=== PATIENT | female | born 1975 | race Caucasian/White ===

== ENCOUNTER 2016-07-15 11:27 | Emergency (ER) | payer BC, OTHER ==
[2016-07-15 11:33] VITALS: BMI 23.5
--- NOTE | 2016-07-15 12:09 | PDOC ---
History of Present Illness - General History Source: Patient Exam Limitations: No Limitations <Blanche Gerardo - Last Filed: 07/15/16 14:34> - History of Present Illness Initial Comments: - General History Source: Patient Exam Limitations: No Limitations - History of Present Illness Initial Comments: 07/15/16 12:12 The patient is a 40-year-old woman, current everyday cigarette smoker (1/2 PPD) , accompanied by her , with a significant past medical history of anxiety and vertigo who presents to the emergency department via walk-in for further evaluation of numbness for the past week. She states that for the past week, she has been experiencing numbness/tingling and pain sensations on her hands and legs, mostly on the L side. She also notes that she wakes up in the middle of the night feeing dizzy, not allowing her to get much sleep. She also states that when she performs daily activities, she gets distracted easily and tends to forget what she was supposed to do. She has also experienced symptoms of her tongue and facial heaviness with some associated slurred speech intermittently. She initially, attributed these symptoms to her history of anxiety, but states that this is different than her typical symptoms. She also notes that nothing really makes her symptoms to happen, they occur randomly on their own. Her , who is currently at the bedside, reports that he believes that these symptoms have started ever since she slipped and fell in the bathroom and injured her head, approximately 1 year ago. She also fell, a few months ago and injured her head when she slipped and fell on the snow. No recent fall/head injury. She did not seek medical attention at the time. Also, of note, the patient stopped her lexapro "cold turkey" 2 weeks ago, and some of these sx started after she stopped her lexapro No recent fever, chills, generalized weakness. No chest pain, lightheadedness, palpitations, headaches, neck pain, neck stiffness, back pain, lower extremity swelling, calf pain. No cough, shortness of breath, throat discomfort, sore throat. No abdominal pain, nausea, vomiting, diarrhea No urinary complaints. She is not on any OCPs Allergies: No Known Drug Allergies. Past Surgical History: None reported Social History: Current everyday cigarette smoker (approximately 4-10/day; is currently trying to quit and also "vapes"). No ETOH and recreational drug use. Primary Care Physician: Dr. Elli Benz (Located in [place], [place]) Remainder of the review of systems is negative. <Blanche Gerardo - Last Filed: 07/15/16 12:17> <Liliya Ramírez - Last Filed: 07/15/16 12:33> <Liliya Ramírez - Last Filed: 07/15/16 17:32> - General Chief Complaint: CVA/TIA Stated Complaint: DIZZINESS, NUMBNESS TO LT SIDE, SLURRED, SOB Time Seen by Provider: 07/15/16 11:52 Past History <Blanche Gerardo - Last Filed: 07/15/16 14:34> - Past Medical History CVA: No GI Disorders: No Disorders: No HTN: No Liver Disease: No Seizures: No Thyroid Disease: No - Psycho/Social/Smoking Cessation Hx Anxiety: Yes Suicidal Ideation: No Smoking History: Current every day smoker Have you smoked in the past 12 months: Yes Number of Cigarettes Smoked Daily: 10 Information on smoking cessation initiated: No 'Breaking Loose' booklet given: 10/08/14 Hx Alcohol Use: No Drug/Substance Use Hx: No Substance Use Type: Alcohol <Liliya Ramírez - Last Filed: 07/15/16 17:32> - Past Medical History Allergies/Adverse Reactions: Allergies Allergy/AdvReac Type Severity Reaction Status Date / Time No Known Drug Allergies Allergy Verified 07/15/16 11:29 Home Medications: Ambulatory Orders Escitalopram Oxalate [Lexapro -] 20 mg PO DAILY 07/15/16 Review of Systems - Review of Systems Able to Perform ROS?: Yes Comments:: 07/15/16 12:12 12 point review of systems is as per history of present illness and otherwise negative. <Blanche Gerardo - Last Filed: 07/15/16 14:34> *Physical Exam - Vital Signs Last Vital Signs Temp Pulse Resp BP Pulse Ox 97.7 F 86 18 128/78 99 07/15/16 11:30 07/15/16 11:30 07/15/16 11:30 07/15/16 11:30 07/15/16 11:30 <Blanche Gerardo - Last Filed: 07/15/16 14:34> - Vital Signs Last Vital Signs Temp Pulse Resp BP Pulse Ox 97.7 F 86 18 128/78 99 07/15/16 11:30 07/15/16 11:30 07/15/16 11:30 07/15/16 11:30 07/15/16 11:30 - Physical Exam Comments: 07/15/16 12:07 Physical exam Last Vital Signs Temp Pulse Resp BP Pulse Ox 97.7 F 86 18 128/78 99 07/15/16 11:30 07/15/16 11:30 07/15/16 11:30 07/15/16 11:30 07/15/16 11:30 GENERAL: The patient is awake, alert, and fully oriented, and in no apparent distress. HEAD: Normal with no signs of trauma. EYES: Pupils equal, round and reactive to light, extraocular movements intact, sclera anicteric, conjunctiva are normal. ENT: Moist mucous membranes. NECK: Normal range of motion, supple LUNGS: Breath sounds equal, clear to auscultation bilaterally. No wheezes, and no crackles. HEART: Regular rate and rhythm, normal S1 and S2 without murmur, rub or gallop. ABDOMEN: Soft, nontender, normoactive bowel sounds. No guarding, no rebound. No masses appreciated. EXTREMITIES: Normal range of motion, no edema. No clubbing or cyanosis. No cords, erythema, or tenderness. NEURO: Mental status: The patient is oriented x3. Cranial nerves: Cranial nerves II through XII are intact Motor: The upper extremities are 5 over 5 in all muscle groups. The lower extremities are 5 over 5 in all muscle groups. Sensation: Sensation is intact to light touch throughout. Cerebellar: Frqleo-swcbkn-gwfx is normal in both upper extremities. Heel-knee- durand is normal in both lower extremities. Gait: Normal. Heel and toe walking are normal. Tandem gait is normal. PSYCH: Normal mood, normal affect. SKIN: Warm, Dry, normal turgor, no rashes or lesions noted. NIH stroke scale 0 <Liliya Ramírez - Last Filed: 07/15/16 17:32> NIH Stroke Scale - Initial Evaluation Level of consciousness: Alert Ask patient the month and their age: Answers both correctly Ask patient to open & close eyes; make fist and let go: Obeys both correctly Best gaze (horizontal eye movement): Normal Visual field testing: No visual field loss Facial paresis (Show teeth/raise eyebrows/close eyes tight): Normal symmetrical movement Motor Function: Left Arm: Normal Motor Function: Right Arm: Normal (extends arm 90 (or 45) degrees for 10 seconds without drift Motor Function: Left Leg: Normal (extends leg 30 degrees for 5 seconds without drift) Motor Function: Right Leg: Normal (extends leg 30 degrees for 5 seconds without drift) Limb Ataxia: No ataxia Sensory(Use pinprick test arms,legs,trunk,face/side to side): Normal Best language (Describe picture, name items, read sentences): No Aphasia Dysarthria (read several words): Normal articulation Extinction and Inattention: No abnormality - Total Score NIH Stroke Scale Score: 0 <Liliya Ramírez - Last Filed: 07/15/16 17:32> Critical Care Time/MDM Note - Medical Decision Making Note: 07/15/16 14:25 EXAM: CT/HEAD CT WITHOUT CONTRAST IMPRESSION: Contiguous transaxial images are obtained from the skull base to the vertex without the intravenous use of iodinated contrast material. Sagittal and coronal reconstructions were performed. There are no areas of diminished or increased attenuation seen. There is no ventricular compression , dilatation or extracerebral collection seen. There is no evidence of a shift of the midline structures. 07/15/16 14:[address] Chiang <Blanche Gerardo - Last Filed: 07/15/16 14:34> - Medical Decision Making Note: 07/15/16 12:08 40-year-old female with 1 week of intermittent symptoms as noted above, without any associated recent intercurrent illnesses, recent (past few weeks) intercurrent head injury, or headache She is not on oral contraceptives NIH stroke scale at this time 0 07/15/16 14:35 Laboratory Results - last 24 hr 07/15/16 07/15/16 07/15/16 11:10 11:10 12:07 WBC 7.8 RBC 4.73 Hgb 12.9 Hct 39.5 MCV 83.5 MCHC 32.7 RDW 12.9 Plt Count 238 MPV 7.6 Sodium 141 Potassium 4.2 Chloride 105 Carbon Dioxide 27 Anion Gap 9 BUN 17 D Creatinine 0.8 Creat Clearance w eGFR > 60 Random Glucose 95 Calcium 9.2 Total Bilirubin 0.3 D AST 32 D ALT 81 H D Alkaline Phosphatase 66 Creatine Kinase 99 Troponin I < 0.02 Total Protein 6.8 Albumin 4.0 Urine HCG, Qual Negative 07/15/16 15:24 Case discussed with neurology-Dr. Chiang - coming to see patient in consultation 07/15/16 16:21 Patient seen and evaluated by neurology-please see consult Neurology would like an MRI of the brain with and without, and an MRI of the C- spine She spoke to radiology, and this will be done this evening, patient will stay until MRI Neurology Recommends MRI brain with and without contrast to rule out demyelinating disease MRI C spine given history of neck pain MRI will be done at 7 PM this evening If MRI brain/c spine normal and patients symptoms resolve, ok from neuro perspective for patient to have close neuro follow up as outpatient Discussed with patient need for psych follow up If radiographic findings abnormal or symptoms persist/worsen would recommend admission for further workup 07/15/16 17:25 Patient refuses to stay for MRI-discussed with Dr. 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 The patient has had an opportunity to ask questions about his/her medical condition. The patient has been informed that he/she may return for care at any time, and has been referred to his/her own physician <Liliya Ramírez - Last Filed: 07/15/16 17:32> Discharge Disposition <Blanche Gerardo - Last Filed: 07/15/16 14:34> <Liliya Ramírez - Last Filed: 07/15/16 17:32> - Diagnosis Numbness, Weakness - Discharge Dispostion Disposition: AGAINST MEDICAL ADVICE - Referrals Referrals: Joe Chiang MD [Staff Physician] - (call for appt jaswant) - Patient Instructions Additional Instructions: You are leaving AGAINST MEDICAL ADVICE Neurology feels it is very important for you to have the MRI this evening, and we do have it scheduled for you at 7 PM You may continue to worsen, or have other neurologic symptoms I have given you a prescription for the MRI- MRI of the brain with and without contrast and MRI of the C-spine you will need to have this MRI done as soon as possible, and follow-up with neurology-Dr. Chiang Please call tomorrow for an appointment Return immediately if you worsen in any way
[2016-07-15 12:55] LABS: MCH 27.3 pg (25.7-33.7); MCHC 32.7 g/dl (32.0-36.0); MEAN CELL VOLUME 83.5 fl (80-96); MEAN PLT VOLUME 7.6 fl (7.5-11.1); PLATELET COUNT 238 K/MM3 (134-434); RDW 12.9 % (11.6-15.6); WHITE BLOOD COUNT 7.8 K/mm3 (4.0-10.0)
[2016-07-15 13:23] LABS: ANION GAP 9 (8-16); CALCIUM 9.2 mg/dL (8.5-10.1); CO2 27 mmol/L (21-32); CREATININE 0.8 mg/dL (0.55-1.02); GLUCOSE,RANDOM 95 mg/dL (74-106); SGOT/AST 32 U/L (15-37); SGPT/ALT 81 U/L (12-78)
[2016-07-15 13:26] LABS: ALK PHOS 66 U/L (45-117); BILIRUBIN,TOTAL 0.3 mg/dL (0.2-1.0); TOT PROT 6.8 g/dl (6.4-8.2); TROPONIN I < 0.02 ng/ml (0.00-0.05)
--- NOTE | 2016-07-15 14:48 | EKG ---
Test Reason : Blood Pressure : / mmHG Vent. Rate : 071 BPM Atrial Rate : 071 BPM P-R Int : 186 ms QRS Dur : 084 ms QT Int : 386 ms P-R-T Axes : 051 070 060 degrees QTc Int : 419 ms NORMAL SINUS RHYTHM NORMAL ECG WHEN COMPARED WITH ECG OF 08-OCT-2014 13:53, NO SIGNIFICANT CHANGE WAS FOUND Confirmed by TERESA GARCIA MD ([id number]) on 07/15/2016 2:48:06 PM Referred By: Confirmed By:TERESA GARCIA MD
--- NOTE | 2016-07-15 16:10 | CONSULT ---
Consult Consult Specialty:: Neurology Reason for Consultation:: Paresthesias - History of Present Illness History of Present Illness: 40 year old woman, history of depression, anxiety, and smoking, presents to ED with multiple neurological complaints. She is accompanied by her . The patient states that for the past week to two weeks she has noted intermittent numbness/ tingling/ pain in her hands, most noteable at night. She has also experienced intermittent lightheadedness, distractibility, slurred speech, and tongue heaviness. Currently, she denies any sensory changes or motor weakness, but reports some tongue heaviness. Of note, the patient ran out of lexapro two weeks ago, and has noted these symptoms since then. She has also noted occasional neck pain and reports her neck feels "uncomfortable" which has been ongoing. Denies history of demyelinating or neurological disease in the past. CT head completed in ED shows no acute findings Examination non focal - History Source History Provided By: Patient - Past Medical History BOOKS BINDER: Yes: Vertigo ...LMP: 09/25/13 Psych: Yes: Anxiety, Depression - Alcohol/Substance Use Hx Alcohol Use: No - Smoking History Smoking history: Current every day smoker Have you smoked in the past 12 months: Yes Aproximately how many cigarettes per day: 10 Home Medications - Allergies Allergies/Adverse Reactions: Allergies Allergy/AdvReac Type Severity Reaction Status Date / Time No Known Drug Allergies Allergy Verified 07/15/16 11:29 - Home Medications Home Medications: Ambulatory Orders Escitalopram Oxalate [Lexapro -] 20 mg PO DAILY 07/15/16 Review of Systems - Review of Systems Constitutional: reports: No Symptoms Eyes: reports: No Symptoms HENT: reports: No Symptoms Neurological: reports: Incoordination, Numbness, Parasthesia Psychiatric: reports: Anxiety, Depression Physical Exam Vital Signs: Vital Signs Temperature 97.7 F 07/15/16 11:30 Pulse Rate 86 07/15/16 11:30 Respiratory Rate 18 07/15/16 11:30 Blood Pressure 128/78 07/15/16 11:30 O2 Sat by Pulse Oximetry (%) 99 07/15/16 11:30 Constitutional: Yes: Well Nourished, No Distress Eyes: Yes: Conjunctiva Clear, EOM Intact HENT: Yes: Atraumatic, Normocephalic Neurological: Yes: Alert, Oriented, Cran Nerves II-XII Intact ...Motor Strength: WNL Labs: CBC, BMP 07/15/16 11:10 07/15/16 11:10 Assessment/Plan 40 year old woman, history of depression, anxiety, and smoking, presents to ED with multiple neurological complaints. She is accompanied by her . The patient states that for the past week to two weeks she has noted intermittent numbness/ tingling/ pain in her hands, most noteable at night. She has also experienced intermittent lightheadedness, distractibility, slurred speech, and tongue heaviness. Currently, she denies any sensory changes or motor weakness, but reports some tongue heaviness. Of note, the patient ran out of lexapro two weeks ago, and has noted these symptoms since then. Symptoms of anxiety have also worsened since discontinuing lexapro. She has also noted occasional neck pain and reports her neck feels "uncomfortable" which has been ongoing. Denies history of demyelinating or neurological disease in the past. CT head completed in ED shows no acute findings Examination non focal. Recommend MRI brain with and without contrast to rule out demyelinating disease MRI C spine given history of neck pain If MRI brain/c spine normal and patients symptoms resolve, ok from neuro perspective for patient to have close neuro follow up as outpatient Discussed with patient need for psych follow up If radiographic findings abnormal or symptoms persist/worsen would recommend admission for further workup
[2016-07-15 16:36] VITALS: BP 109/72; PULSE 70; TEMP 98.3
== END 2016-07-15 17:51 | disposition left against medical advice (07) ==
LOC: JER 11:27
DX: R53.1 Weakness (principal); R20.0 Anesthesia of skin; F41.9 Anxiety disorder, unspecified; F17.210 Nicotine dependence, cigarettes, uncomplicated
CPT/HCPCS: 36415; 70450-TC; 70553-TC; 72141-TC; 80053; 82550; 84484; 84703; 85027; 93005; 93010; 99284-25; A9576

== ENCOUNTER 2020-06-23 14:21 | Emergency (ER) | payer BC, OTHER ==
[2020-06-23 14:32] VITALS: BP 146/90; PULSE 68; TEMP 98.2; BMI 21.1
[2020-06-23 16:04] LABS: BASO % 0.5 % (0-2.0); EOS % 0.4 % (0-4.5); HEMATOCRIT 38.6 % (32.4-45.2); HEMOGLOBIN 12.7 GM/dL (10.7-15.3); LYMPH % 22.8 % (8-40); MCH 27.9 pg (25.7-33.7); MCHC 32.8 g/dl (32.0-36.0); MEAN CELL VOLUME 84.9 fl (80-96); MEAN PLT VOLUME 7.7 fl (7.5-11.1); MONO % 3.9 % (3.8-10.2); NEUT % 72.4 % (42.8-82.8); PLATELET COUNT 287 K/MM3 (134-434); RBC 4.54 M/mm3 (3.60-5.2); RDW 13.5 % (11.6-15.6); WHITE BLOOD COUNT 8.7 K/mm3 (4.0-10.0)
[2020-06-23 16:09] LABS: INR 0.87 (0.83-1.09); PROTHROMBIN TIME (PATIENT) 10.6 SEC (9.7-13.0)
[2020-06-23 16:12] LABS: ACTIVATED PTT 29.5 SECONDS (25.2-36.5)
[2020-06-23 16:26] LABS: CHLORIDE 103 mmol/L (98-107); POTASSIUM 3.7 mmol/L (3.5-5.1); SODIUM 136 mmol/L (136-145)
[2020-06-23 16:28] LABS: CALCIUM 9.8 mg/dL (8.5-10.1)
[2020-06-23 16:29] LABS: ALBUMIN 4.4 g/dl (3.4-5.0); ANION GAP 7 MMOL/L (8-16); BLOOD UREA NITROGEN 12.2 mg/dL (7-18); CO2 27 mmol/L (21-32); GLUCOSE,RANDOM 94 mg/dL (74-106); MAGNESIUM 2.2 mg/dL (1.8-2.4)
[2020-06-23 16:32] LABS: CREATININE 0.7 mg/dL (0.55-1.3); SGOT/AST 15 U/L (15-37); SGPT/ALT 26 U/L (13-61)
[2020-06-23 16:34] LABS: BILIRUBIN,TOTAL 0.4 mg/dL (0.2-1); TOT PROT 7.6 g/dl (6.4-8.2)
[2020-06-23 16:35] LABS: ALK PHOS 94 U/L (45-117)
== END 2020-06-23 17:00 | disposition home or self-care (01) ==
LOC: JER 14:21
DX: F41.9 Anxiety disorder, unspecified (principal)
CPT/HCPCS: 36415; 80053; 82550; 82553; 83735; 84484; 85025; 85379; 85610; 85730; 93005; 93010; 99284-25

== ENCOUNTER 2021-03-12 15:16 | Emergency (ER) | payer BC, OTHER ==
[2021-03-12 15:36] VITALS: BP 134/81; PULSE 81; TEMP 97.8; BMI 22.7
== END 2021-03-12 17:14 | disposition left against medical advice (07) ==
LOC: JER 15:16
DX: R00.2 Palpitations (principal)
CPT/HCPCS: 93005; 93010; 99284-25